=== PATIENT | female | born 1950 | race African-American/Black ===

== ENCOUNTER 2017-05-02 18:44 | Inpatient (IN) | payer MEDICARE, MEDICAID ==
[~2017-05-02] VITALS: Ht 154.9 cm; Wt 48.3 kg
[~2017-05-02 18:44] MED LIST: ACET-2178 PO; ALEN70TA3 PO; AMLO5TAB4 PO; ASCO125T PO; CARI350T PO; FAMO-135 PO; FERR325T22 PO; FOLI-43 PO; HYDR200T PO; MELO-106 PO; TRAM50TA PO
[2017-05-02 19:45] LABS: BASOPHILS % 0.8 % (0.0-2.0); EOSINOPHILS % 1.4 % (0.0-5.0); HEMATOCRIT. 24.7 % (36.0-48.0); HEMOGLOBIN. 7.5 g/dL (12.0-16.0); LYMPHOCYTES % 20.2 % (20.0-50.0); MEAN CORPUSCULAR VOLUME 112.5 fL (81.0-99.0); MEAN PLATELET VOLUME 6.5 fl (7.4-10.4); NEUTROPHILS % 65.6 % (40.0-76.0); PLATELET 357 x1000/uL (130-400); RED BLOOD CELL COUNT 2.19 mill/uL (4.2-5.4); RED CELL DISTRIBUTION WIDTH 17.3 % (11.6-14.6)
[2017-05-02 19:46] LABS: CHLORIDE 119 mEq/L (98-107)
[2017-05-02 19:47] LABS: PROTHROMBIN TIME 10.2 sec (9.4-11.6)
[2017-05-02 19:49] LABS: CARBON DIOXIDE 14 mEq/L (21-32)
[2017-05-02 20:42] LABS: PLATELET ESTIMATE NORMAL
[2017-05-02] MEDS ORDERED: ACETAMINOPHEN WITH CODEINE 300/30MG TABLET PO ONE (21:00)
[2017-05-02] MEDS ORDERED: PANTOPRAZOLE SODIUM 40 MG/VIAL IV ONE (21:30)
[2017-05-03] MEDS ORDERED: HYDR-523 PO (00:38)
[2017-05-03] MEDS ORDERED: ASCO500C6 PO (00:38)
[2017-05-03] MEDS ORDERED: ONDA4TAB5 PO (00:38)
[2017-05-03] MEDS ORDERED: ACETAMINOPHEN 325MG TABLET PO PRN (01:15)
[2017-05-03] MEDS ORDERED: DIPHENHYDRAMINE 50MG/ML VIAL IV PRN (01:15)
[2017-05-03] MEDS ORDERED: LORAZEPAM 0.5MG TABLET PO PRN (01:15)
[2017-05-03] MEDS ORDERED: MAGNESIUM/ALUMINUM HYDROXIDE/SIMETHICONE 30ML UDC PO PRN (01:15)
[2017-05-03] MEDS ORDERED: DOCUSATE SODIUM 100MG CAPSULE PO PRN (01:15)
[2017-05-03 02:12] LABS: TOTAL IRON BINDING CAPACITY 198 ug/dL (250-450)
[2017-05-03] MEDS: SODIUM BICARBONATE 50 MEQ in DEXT 5%/0.45% NACL 1000ML 1,000 ML IV SCH ×2 (02:56→14:28)
[2017-05-03] MEDS: AMLODIPINE 10MG TABLET PO SCH (08:22)
[2017-05-03] MEDS: FAMOTIDINE 20MG TABLET PO SCH (08:23)
[2017-05-03] MEDS: ASCORBIC ACID 500 MG TABLET PO SCH ×2 (08:23→20:09)
[2017-05-03] MEDS: HYDROXYCHLOROQUINE SULFATE 200MG TABLET PO SCH ×2 (08:23→16:28)
[2017-05-03] MEDS: FOLIC ACID 1MG TABLET PO SCH (08:23)
[2017-05-03] MEDS: FERROUS GLUCONATE 324MG TABLET PO SCH ×3 (08:24→16:28)
[2017-05-03 11:32] LABS: BASOPHILS % 0.7 % (0.0-2.0); EOSINOPHILS % 1.7 % (0.0-5.0); HEMATOCRIT. 30.7 % (36.0-48.0); HEMOGLOBIN. 9.8 g/dL (12.0-16.0); LYMPHOCYTES % 14.1 % (20.0-50.0); MEAN CORPUSCULAR HEMOGLOBIN 32.7 pg (28.0-32.0); MEAN CORPUSCULAR VOLUME 102.8 fL (81.0-99.0); MEAN PLATELET VOLUME 7.2 fl (7.4-10.4); MONOCYTES % 12.1 % (2.0-8.0); NEUTROPHILS % 71.4 % (40.0-76.0); PLATELET 315 x1000/uL (130-400); RED BLOOD CELL COUNT 2.98 mill/uL (4.2-5.4); RED CELL DISTRIBUTION WIDTH 23.6 % (11.6-14.6)
[2017-05-03 12:05] LABS: CARBON DIOXIDE 17 mEq/L (21-32); CHLORIDE 119 mEq/L (98-107); PREALBUMIN 31.7 mg/dL (20.0-40.0)
[2017-05-03] MEDS: ACETAMINOPHEN 325MG TABLET PO PRN (20:10)
[2017-05-04] MEDS: SODIUM BICARBONATE 50 MEQ in DEXT 5%/0.45% NACL 1000ML 1,000 ML IV SCH ×2 (02:45→14:00)
[2017-05-04] MEDS: ONDANSETRON HCL 4MG/2ML VIAL IV PRN ×3 (04:44→19:59)
[2017-05-04 06:48] LABS: BASOPHILS % 0.7 % (0.0-2.0); EOSINOPHILS % 1.3 % (0.0-5.0); HEMATOCRIT. 30.3 % (36.0-48.0); HEMOGLOBIN. 9.9 g/dL (12.0-16.0); LYMPHOCYTES % 11.5 % (20.0-50.0); MEAN CORPUSCULAR HEMOGLOBIN 32.2 pg (28.0-32.0); MEAN CORPUSCULAR VOLUME 98.7 fL (81.0-99.0); MEAN PLATELET VOLUME 6.6 fl (7.4-10.4); MONOCYTES % 11.8 % (2.0-8.0); NEUTROPHILS % 74.7 % (40.0-76.0); PLATELET 316 x1000/uL (130-400); RED BLOOD CELL COUNT 3.07 mill/uL (4.2-5.4); RED CELL DISTRIBUTION WIDTH 22.3 % (11.6-14.6)
[2017-05-04] MEDS: FERROUS GLUCONATE 324MG TABLET PO SCH ×3 (06:56→17:20)
[2017-05-04] MEDS ORDERED: ALENDRONATE SODIUM 35MG TABLET PO SCH (07:00)
[2017-05-04 07:33] LABS: CHLORIDE 114 mEq/L (98-107)
[2017-05-04 07:55] LABS: CARBON DIOXIDE 18 mEq/L (21-32)
[2017-05-04 08:08] LABS: VITAMIN B12 SERUM 1390 pg/mL (211-911)
[2017-05-04 08:10] LABS: FOLIC ACID (FOLATE) SERUM > 20.00 ng/mL (>5.38)
[2017-05-04] MEDS: FAMOTIDINE 20MG TABLET PO SCH (08:52)
[2017-05-04] MEDS: HYDROXYCHLOROQUINE SULFATE 200MG TABLET PO SCH ×2 (08:52→17:20)
[2017-05-04] MEDS: AMLODIPINE 10MG TABLET PO SCH (08:52)
[2017-05-04] MEDS: ASCORBIC ACID 500 MG TABLET PO SCH ×2 (08:52→20:00)
[2017-05-04] MEDS: FOLIC ACID 1MG TABLET PO SCH (08:52)
[2017-05-04] MEDS: ACETAMINOPHEN 325MG TABLET PO PRN (20:00)
[2017-05-04] MEDS: SODIUM BICARBONATE 650 MG TABLET PO SCH (21:07)
[2017-05-04 21:14] LABS: BASOPHILS % 0.5 % (0.0-2.0); EOSINOPHILS % 1.7 % (0.0-5.0); HEMOGLOBIN. 9.7 g/dL (12.0-16.0); LYMPHOCYTES % 20.2 % (20.0-50.0); MEAN CORPUSCULAR HEMOGLOBIN 33.3 pg (28.0-32.0); MEAN PLATELET VOLUME 7.1 fl (7.4-10.4); MONOCYTES % 16.4 % (2.0-8.0); NEUTROPHILS % 61.2 % (40.0-76.0); PLATELET 328 x1000/uL (130-400); RED CELL DISTRIBUTION WIDTH 22.7 % (11.6-14.6)
[2017-05-04 21:26] LABS: CREATINE KINASE MB FRACTION 1.2 ng/mL (0.5-3.6); TROPONIN I < 0.02 ng/mL (0.00-0.04)
[2017-05-05] MEDS: FERROUS GLUCONATE 324MG TABLET PO SCH (06:09)
[2017-05-05 08:30] VITALS: BP 122/82
[2017-05-05] MEDS: ONDANSETRON HCL 4MG/2ML VIAL IV PRN (09:05)
[2017-05-05] MEDS: ASCORBIC ACID 500 MG TABLET PO SCH (09:05)
[2017-05-05] MEDS: AMLODIPINE 10MG TABLET PO SCH (09:05)
[2017-05-05] MEDS: HYDROXYCHLOROQUINE SULFATE 200MG TABLET PO SCH (09:05)
[2017-05-05] MEDS: FAMOTIDINE 20MG TABLET PO SCH (09:05)
[2017-05-05] MEDS: FOLIC ACID 1MG TABLET PO SCH (09:05)
[2017-05-05] MEDS: SODIUM BICARBONATE 650 MG TABLET PO SCH (09:07)
[2017-05-06 10:12] LABS: VITAMIN D 1-25 DIHYDROXY 27.5 pg/mL (19.9-79.3)
[2017-05-06 13:12] LABS: ANA IFA Negative (.)
[2017-05-07] MEDS ORDERED: METHOTREXATE SODIUM 2 . 5MG TABLET PO SCH (09:00)
== END 2017-05-05 10:00 | DRG 197 ==
LOC: ER 20:03 → 5WST 20:59 → ENRESERV 21:09
PROVIDERS: ADMIT Internal Medicine Rheumatology; ATTEND Internal Medicine Rheumatology
PROC: 30233N1 Transfusion of Nonautologous Red Blood Cells into Peripheral Vein, Percutaneous Approach (ICD-10-PCS; principal; 2017-05-03)
DX: Q27.30 Arteriovenous malformation, site unspecified (principal); E43 Unspecified severe protein-calorie malnutrition; E87.2 Acidosis; M05.20 Rheumatoid vasculitis with rheumatoid arthritis of unspecified site; N25.89 Other disorders resulting from impaired renal tubular function; E46 Unspecified protein-calorie malnutrition; I11.9 Hypertensive heart disease without heart failure; D53.9 Nutritional anemia, unspecified; M81.0 Age-related osteoporosis without current pathological fracture; I77.6 Arteritis, unspecified; M51.36 Other intervertebral disc degeneration, lumbar region; M19.90 Unspecified osteoarthritis, unspecified site; J44.9 Chronic obstructive pulmonary disease, unspecified; K21.9 Gastro-esophageal reflux disease without esophagitis; Z82.49 Family history of ischemic heart disease and other diseases of the circulatory system; Z83.3 Family history of diabetes mellitus; Z87.891 Personal history of nicotine dependence; Z68.20 Body mass index [BMI] 20.0-20.9, adult; Z79.899 Other long term (current) drug therapy; Z80.9 Family history of malignant neoplasm, unspecified; D63.8 Anemia in other chronic diseases classified elsewhere
CPT/HCPCS: 36415; 80048; 80053; 82270; 82553; 82607; 82652; 82746; 83540; 83550; 83605; 84134; 84484; 84550; 85025; 85044; 85610; 85651; 86256; 86850; 86870; 86880; 86900; 86920; 93005; 96374; 97162; 99285; C9113; J2405; J3490; J7050; P9016

== ENCOUNTER 2017-05-30 10:23 | Inpatient (IN) | payer MEDICARE, MEDICAID ==
[~2017-05-30] VITALS: Ht 154.9 cm; Wt 49.0 kg
[~2017-05-30 10:23] MED LIST changes: +ASCO500C6 PO; +HYDR-523 PO; +ONDA4TAB5 PO
[2017-05-30] MEDS ORDERED: ACETAMINOPHEN 325MG TABLET PO ONE (11:45)
[2017-05-30] MEDS ORDERED: KETOROLAC 15MG/ML VIAL IV ONE (16:00)
[2017-05-30 16:30] LABS: HEMATOCRIT. 33.2 % (36.0-48.0); HEMOGLOBIN. 10.4 g/dL (12.0-16.0); MEAN CORPUSCULAR HEMOGLOBIN 31.3 pg (28.0-32.0); MEAN CORPUSCULAR VOLUME 99.8 fL (81.0-99.0); MEAN PLATELET VOLUME 8.1 fl (7.4-10.4); PLATELET 313 x1000/uL (130-400); RED BLOOD CELL COUNT 3.33 mill/uL (4.2-5.4); RED CELL DISTRIBUTION WIDTH 19.8 % (11.6-14.6)
[2017-05-30 16:42] LABS: CARBON DIOXIDE 20 mEq/L (21-32); CHLORIDE 118 mEq/L (98-107)
[2017-05-30 16:49] LABS: PLATELET ESTIMATE NORMAL
[2017-05-30] MEDS ORDERED: SODIUM CHLORIDE 0.9% 1,000 ML IV ONE (19:00)
[2017-05-30 22:00] VITALS: BP 110/77
[2017-05-30 22:30] VITALS: BP 110/77
[2017-05-31] VITALS: BP 126/85
[2017-05-31] MEDS ORDERED: ACETAMINOPHEN 325MG TABLET PO PRN (00:30)
[2017-05-31] MEDS ORDERED: MAGNESIUM/ALUMINUM HYDROXIDE/SIMETHICONE 30ML UDC PO PRN (00:30)
[2017-05-31] MEDS ORDERED: DOCUSATE SODIUM 100MG CAPSULE PO PRN (00:30)
[2017-05-31] MEDS ORDERED: ALPRAZOLAM 0.25 MG TABLET PO PRN (00:30)
[2017-05-31] MEDS ORDERED: ONDANSETRON HCL 4MG/2ML VIAL IV PRN (00:30)
[2017-05-31] MEDS: DEXT 5%/0.45% NACL 1000ML 1,000 ML IV SCH ×3 (02:23→20:23)
[2017-05-31] MEDS: HYDROMORPHONE HCL/PF 2MG/ML CPJ IV PRN ×2 (02:33→09:19)
[2017-05-31 04:00] VITALS: BP 126/90
[2017-05-31] MEDS: METHYLPREDNISOLONE SOD SUCC 125 MG/2 ML VIAL IV SCH ×3 (05:54→17:55)
[2017-05-31 07:10] LABS: HEMATOCRIT. 28.2 % (36.0-48.0); HEMOGLOBIN. 8.9 g/dL (12.0-16.0); MEAN CORPUSCULAR HEMOGLOBIN 31.4 pg (28.0-32.0); MEAN PLATELET VOLUME 8.8 fl (7.4-10.4); PLATELET 254 x1000/uL (130-400); RED BLOOD CELL COUNT 2.82 mill/uL (4.2-5.4); RED CELL DISTRIBUTION WIDTH 20.1 % (11.6-14.6)
[2017-05-31 07:59] LABS: CHLORIDE 112 mEq/L (98-107)
[2017-05-31 08:00] VITALS: BP 110/77
[2017-05-31 08:17] LABS: CARBON DIOXIDE 16 mEq/L (21-32); T4 FREE 0.95 ng/dL (0.76-1.46)
[2017-05-31] MEDS ORDERED: METHOTREXATE SODIUM 2 . 5MG TABLET PO SCH ×3 (09:00→17:00)
[2017-05-31] MEDS: CALCIUM CARBONATE 1250MG TABLET (500MG ELEMENTAL CALCIUM) PO SCH ×3 (09:19→17:55)
[2017-05-31] MEDS: FOLIC ACID 1MG TABLET PO SCH (09:19)
[2017-05-31] MEDS: AMLODIPINE 5MG TABLET PO SCH (09:20)
[2017-05-31] MEDS: FAMOTIDINE 20MG TABLET PO SCH ×2 (09:20→20:27)
[2017-05-31] MEDS: ZINC SULFATE 220 MG ( 50 ) CAPSULE PO SCH (09:20)
[2017-05-31] MEDS: CHOLECALCIFEROL (D3) 1000 UNIT TABLET PO SCH (09:21)
[2017-05-31] MEDS: HYDROXYCHLOROQUINE SULFATE 200MG TABLET PO SCH ×2 (09:38→17:55)
[2017-05-31] MEDS: MELOXICAM 7.5MG TABLET PO SCH (09:39)
[2017-05-31 12:00] VITALS: BP 126/83
[2017-05-31 12:20] LABS: CREATINE KINASE 128 IU/L (26-192); TOTAL IRON BINDING CAPACITY 181 ug/dL (250-450); TROPONIN I < 0.02 ng/mL (0.00-0.04)
[2017-05-31] MEDS: PAROXETINE HCL 20MG TABLET PO SCH (12:41)
[2017-05-31 16:00] VITALS: BP 123/77
[2017-05-31] MEDS ORDERED: BISMUTH SUBSALICYLATE 262 MG/15 ML-120ML BOTTLE PO NR (16:00)
[2017-05-31 20:00] VITALS: BP 111/75
[2017-05-31 21:14] LABS: PLATELET ESTIMATE NORMAL
[2017-06-01] VITALS: BP 127/80
[2017-06-01] MEDS: METHYLPREDNISOLONE SOD SUCC 125 MG/2 ML VIAL IV SCH ×4 (03:26→16:29)
[2017-06-01 04:00] VITALS: BP 115/55
[2017-06-01] MEDS: DEXT 5%/0.45% NACL 1000ML 1,000 ML IV SCH ×2 (05:54→16:28)
[2017-06-01 06:54] LABS: HEMATOCRIT. 27.5 % (36.0-48.0); HEMOGLOBIN. 8.7 g/dL (12.0-16.0); MEAN CORPUSCULAR HEMOGLOBIN 31.5 pg (28.0-32.0); MEAN CORPUSCULAR VOLUME 99.4 fL (81.0-99.0); PLATELET 250 x1000/uL (130-400); RED BLOOD CELL COUNT 2.76 mill/uL (4.2-5.4); RED CELL DISTRIBUTION WIDTH 19.7 % (11.6-14.6)
[2017-06-01 07:19] LABS: CARBON DIOXIDE 15 mEq/L (21-32); CHLORIDE 113 mEq/L (98-107)
[2017-06-01 08:00] VITALS: BP 132/78
[2017-06-01] MEDS: ZINC SULFATE 220 MG ( 50 ) CAPSULE PO SCH (09:36)
[2017-06-01] MEDS: FOLIC ACID 1MG TABLET PO SCH (09:36)
[2017-06-01] MEDS: CALCIUM CARBONATE 1250MG TABLET (500MG ELEMENTAL CALCIUM) PO SCH ×3 (09:36→16:29)
[2017-06-01] MEDS: CHOLECALCIFEROL (D3) 1000 UNIT TABLET PO SCH (09:36)
[2017-06-01] MEDS: PAROXETINE HCL 20MG TABLET PO SCH (09:36)
[2017-06-01] MEDS: MELOXICAM 7.5MG TABLET PO SCH (09:36)
[2017-06-01] MEDS: AMLODIPINE 5MG TABLET PO SCH (09:36)
[2017-06-01] MEDS: FAMOTIDINE 20MG TABLET PO SCH ×2 (09:36→20:40)
[2017-06-01] MEDS: HYDROXYCHLOROQUINE SULFATE 200MG TABLET PO SCH ×2 (09:49→16:29)
[2017-06-01 12:00] VITALS: BP 142/89
[2017-06-01 14:19] LABS: NUCLEATED RED BLOOD CELLS 1 /100 WBC; PLATELET ESTIMATE NORMAL
[2017-06-01 20:00] VITALS: BP 161/95
[2017-06-02] VITALS: BP 146/90
[2017-06-02] MEDS: METHYLPREDNISOLONE SOD SUCC 125 MG/2 ML VIAL IV SCH ×5 (00:57→23:30)
[2017-06-02] MEDS: DEXT 5%/0.45% NACL 1000ML 1,000 ML IV SCH ×2 (02:57→13:21)
[2017-06-02 04:00] VITALS: BP 153/93
[2017-06-02 07:18] LABS: HEMATOCRIT. 27.2 % (36.0-48.0); MEAN CORPUSCULAR HEMOGLOBIN 32.2 pg (28.0-32.0); MEAN CORPUSCULAR VOLUME 96.9 fL (81.0-99.0); MEAN PLATELET VOLUME 8.8 fl (7.4-10.4); PLATELET 267 x1000/uL (130-400); RED BLOOD CELL COUNT 2.81 mill/uL (4.2-5.4); RED CELL DISTRIBUTION WIDTH 19.1 % (11.6-14.6)
[2017-06-02 08:00] VITALS: BP 155/99
[2017-06-02 08:18] LABS: CARBON DIOXIDE 18 mEq/L (21-32); CHLORIDE 111 mEq/L (98-107)
[2017-06-02] MEDS: ZINC SULFATE 220 MG ( 50 ) CAPSULE PO SCH (09:37)
[2017-06-02] MEDS: AMLODIPINE 5MG TABLET PO SCH (09:37)
[2017-06-02] MEDS: MELOXICAM 7.5MG TABLET PO SCH (09:37)
[2017-06-02] MEDS: PAROXETINE HCL 20MG TABLET PO SCH (09:37)
[2017-06-02] MEDS: FAMOTIDINE 20MG TABLET PO SCH ×2 (09:37→20:51)
[2017-06-02] MEDS: FOLIC ACID 1MG TABLET PO SCH (09:37)
[2017-06-02] MEDS: CALCIUM CARBONATE 1250MG TABLET (500MG ELEMENTAL CALCIUM) PO SCH ×3 (09:37→18:15)
[2017-06-02] MEDS: HYDROXYCHLOROQUINE SULFATE 200MG TABLET PO SCH ×2 (09:37→18:15)
[2017-06-02] MEDS: CHOLECALCIFEROL (D3) 1000 UNIT TABLET PO SCH (09:38)
[2017-06-02 10:48] LABS: PLATELET ESTIMATE NORMAL
[2017-06-02 12:00] VITALS: BP 139/95
[2017-06-02 15:51] VITALS: BP 149/95
[2017-06-02 20:00] VITALS: BP 147/88
[2017-06-02] MEDS ORDERED: HYDROMORPHONE HCL/PF 2MG/ML CPJ IV NR (20:15)
[2017-06-03] VITALS: BP 130/89
[2017-06-03] MEDS ORDERED: HYDROMORPHONE HCL/PF 2MG/ML CPJ IV NR (02:00)
[2017-06-03 04:00] VITALS: BP 150/90
[2017-06-03] MEDS: METHYLPREDNISOLONE SOD SUCC 125 MG/2 ML VIAL IV SCH ×2 (05:43→12:36)
[2017-06-03] MEDS: DEXT 5%/0.45% NACL 1000ML 1,000 ML IV SCH ×2 (05:44→09:02)
[2017-06-03 08:00] VITALS: BP 144/91
[2017-06-03] MEDS: FOLIC ACID 1MG TABLET PO SCH (08:58)
[2017-06-03] MEDS: FAMOTIDINE 20MG TABLET PO SCH ×2 (08:58→21:03)
[2017-06-03] MEDS: PAROXETINE HCL 20MG TABLET PO SCH (08:58)
[2017-06-03] MEDS: AMLODIPINE 5MG TABLET PO SCH (08:58)
[2017-06-03] MEDS: CALCIUM CARBONATE 1250MG TABLET (500MG ELEMENTAL CALCIUM) PO SCH ×3 (08:58→17:19)
[2017-06-03] MEDS: CHOLECALCIFEROL (D3) 1000 UNIT TABLET PO SCH (08:59)
[2017-06-03] MEDS: HYDROXYCHLOROQUINE SULFATE 200MG TABLET PO SCH ×2 (08:59→17:20)
[2017-06-03] MEDS: ZINC SULFATE 220 MG ( 50 ) CAPSULE PO SCH (08:59)
[2017-06-03] MEDS: MELOXICAM 7.5MG TABLET PO SCH (09:01)
[2017-06-03 09:40] LABS: HEMATOCRIT. 28.6 % (36.0-48.0); HEMOGLOBIN. 9.6 g/dL (12.0-16.0); MEAN CORPUSCULAR HEMOGLOBIN 32.5 pg (28.0-32.0); MEAN CORPUSCULAR VOLUME 96.9 fL (81.0-99.0); MEAN PLATELET VOLUME 8.2 fl (7.4-10.4); PLATELET 252 x1000/uL (130-400); RED BLOOD CELL COUNT 2.96 mill/uL (4.2-5.4); RED CELL DISTRIBUTION WIDTH 19.1 % (11.6-14.6)
[2017-06-03 09:56] LABS: CARBON DIOXIDE 25 mEq/L (21-32); CHLORIDE 104 mEq/L (98-107)
[2017-06-03 12:00] VITALS: BP 152/94
[2017-06-03 13:26] LABS: PLATELET ESTIMATE NORMAL
[2017-06-03 16:00] VITALS: BP 156/49
[2017-06-03] MEDS ORDERED: AMLODIPINE 10MG TABLET PO NR (18:00)
[2017-06-03 20:00] VITALS: BP 141/95
[2017-06-04] VITALS: BP 135/95
[2017-06-04 04:00] VITALS: BP_SYST 129; BP_SYST 135; BP_DIAS 90; BP_DIAS 95
[2017-06-04 07:40] VITALS: BP 125/84
[2017-06-04] MEDS: ZINC SULFATE 220 MG ( 50 ) CAPSULE PO SCH (08:19)
[2017-06-04] MEDS: CHOLECALCIFEROL (D3) 1000 UNIT TABLET PO SCH (08:19)
[2017-06-04] MEDS: FOLIC ACID 1MG TABLET PO SCH (08:19)
[2017-06-04] MEDS: MELOXICAM 7.5MG TABLET PO SCH (08:19)
[2017-06-04] MEDS: PAROXETINE HCL 20MG TABLET PO SCH (08:19)
[2017-06-04] MEDS: FAMOTIDINE 20MG TABLET PO SCH (08:19)
[2017-06-04] MEDS: HYDROXYCHLOROQUINE SULFATE 200MG TABLET PO SCH ×2 (08:19→17:08)
[2017-06-04] MEDS: CALCIUM CARBONATE 1250MG TABLET (500MG ELEMENTAL CALCIUM) PO SCH ×3 (08:20→17:08)
[2017-06-04] MEDS: AMLODIPINE 5MG TABLET PO SCH (08:20)
[2017-06-04 09:47] VITALS: BP 128/70
[2017-06-04 12:00] VITALS: BP 123/90
[2017-06-04 13:12] LABS: ALDOLASE 6.5 U/L (3.3-10.3); ANA IFA Negative (.); ANTI-MYELOPEROXIDASE AB < 9.0 U/mL (0.0-9.0); ANTI-PROTEINASE 3 ABS < 3.5 U/mL (0.0-3.5); COMPLEMENT C3 48 mg/dL (82-167); VITAMIN D 1-25 DIHYDROXY 35.1 pg/mL (19.9-79.3)
[2017-06-04 15:07] LABS: ATYPICAL P-ANCA <1:20 titer (Neg:<1:20); CYTOPLASMIC C-ANCA <1:20 titer (Neg:<1:20); PERINUCLEAR P-ANCA <1:20 titer (Neg:<1:20)
[2017-06-04 16:00] VITALS: BP 124/85
[2017-06-05 04:17] LABS: CYC CITRULLINATED PEP IgG/IgA 40 units (0-19)
[2017-06-05] MEDS ORDERED: ALENDRONATE SODIUM 35MG TABLET PO SCH (07:00)
== END 2017-06-04 18:21 | disposition home health service (06) | DRG 346 ==
LOC: ER 10:34 → 8WST 15:54 → ENRESERV 18:19
PROVIDERS: ADMIT Internal Medicine Rheumatology; ATTEND Internal Medicine Rheumatology
DX: M06.9 Rheumatoid arthritis, unspecified (principal); E43 Unspecified severe protein-calorie malnutrition; L89.151 Pressure ulcer of sacral region, stage 1; E87.0 Hyperosmolality and hypernatremia; I11.9 Hypertensive heart disease without heart failure; J44.9 Chronic obstructive pulmonary disease, unspecified; E86.0 Dehydration; D64.9 Anemia, unspecified; F32.9 Major depressive disorder, single episode, unspecified; Z96.641 Presence of right artificial hip joint; M81.0 Age-related osteoporosis without current pathological fracture; M19.90 Unspecified osteoarthritis, unspecified site; K21.9 Gastro-esophageal reflux disease without esophagitis; T38.0X5A Adverse effect of glucocorticoids and synthetic analogues, initial encounter; D72.829 Elevated white blood cell count, unspecified; R26.9 Unspecified abnormalities of gait and mobility; M51.36 Other intervertebral disc degeneration, lumbar region; Z87.891 Personal history of nicotine dependence; Z83.3 Family history of diabetes mellitus; Z82.49 Family history of ischemic heart disease and other diseases of the circulatory system; Y92.89 Other specified places as the place of occurrence of the external cause; Z99.3 Dependence on wheelchair
CPT/HCPCS: 36415; 73560; 73590; 80048; 80053; 82085; 82550; 82553; 82652; 83520; 83540; 83550; 84134; 84439; 84484; 84550; 85025; 85651; 86160; 86200; 86256; 87493; 93005; 96361; 96374; 97110; 97162; 97166; 97530; 99285; J1170; J1885; J2930; J3490; J7030; J8610

== ENCOUNTER 2022-03-07 16:38 | Emergency (ER) | payer MEDICARE, MEDICAID ==
[~2022-03-07] VITALS: Ht 154.9 cm; Wt 53.0 kg
[~2022-03-07 16:38] MED LIST changes: -ACET-2178 PO; -CARI350T PO; +CARI350T28 PO; +FERR324T22 PO; -FERR325T22 PO; -HYDR200T PO; +HYDR200T80 PO; +TOPUD PO
[2022-03-07] MEDS ORDERED: HYDROCODONE/ACETAMINOPHEN 5/325MG TABLET PO ONE (17:45)
[2022-03-07] MEDS ORDERED: KETOROLAC 60MG/2ML VIAL IM ONE (17:45)
[2022-03-07] MEDS ORDERED: MORPHINE SULFATE 4 MG/ML CPJ (NOT FOR IM USE) IV ONE (19:15)
[2022-03-07 19:33] LABS: HEMATOCRIT. 35.5 % (36.0-48.0); HEMOGLOBIN. 11.6 g/dL (12.0-16.0); MEAN CORPUSCULAR HEMOGLOBIN 32.5 pg (28.0-32.0); MEAN PLATELET VOLUME 8.6 fl (7.4-10.4); PLATELET 203 x1000/uL (130-400); RED BLOOD CELL COUNT 3.55 mill/uL (4.2-5.4); RED CELL DISTRIBUTION WIDTH 17.6 % (11.6-14.6)
[2022-03-07 19:39] LABS: CHLORIDE 112 mEq/L (98-107)
[2022-03-07 19:43] LABS: PROTHROMBIN TIME 10.6 sec (9.6-11.0)
[2022-03-07 19:59] LABS: PLATELET ESTIMATE NORMAL
[2022-03-07] MEDS ORDERED: MORPHINE SULFATE 4 MG/ML CPJ (NOT FOR IM USE) IV NR (21:00)
[2022-03-07] MEDS ORDERED: IBUP-2028 MT (21:25)
[2022-03-07] MEDS ORDERED: HYDR-4001 MT (21:25)
[2022-03-08 00:11] VITALS: BP 126/70
[2022-03-09] MEDS ORDERED: AMLO5TAB88 PO (07:28)
[2022-03-09] MEDS ORDERED: CHOL400D7 PO (07:34)
[2022-03-09] MEDS ORDERED: CYPR4SYR PO (07:35)
[2022-03-09] MEDS ORDERED: METH2.5T PO (07:36)
[2022-03-09] MEDS ORDERED: THIA100T88 PO (07:37)
== END 2022-03-08 01:12 ==
LOC: ER 16:38 → CANBEDREQ 21:46 → ER 03-08 01:12
DX: S82.491A Other fracture of shaft of right fibula, initial encounter for closed fracture (principal); S82.291A Other fracture of shaft of right tibia, initial encounter for closed fracture; W18.39XA Other fall on same level, initial encounter; Y93.89 Activity, other specified; Y92.89 Other specified places as the place of occurrence of the external cause; Y99.8 Other external cause status; I10 Essential (primary) hypertension; K21.9 Gastro-esophageal reflux disease without esophagitis; F03.90 Unspecified dementia, unspecified severity, without behavioral disturbance, psychotic disturbance, mood disturbance, and anxiety; J44.9 Chronic obstructive pulmonary disease, unspecified; D64.9 Anemia, unspecified
CPT/HCPCS: 29505; 36415; 73562; 73590; 73610; 80053; 85025; 85610; 86850; 86870; 86900; 86901; 96372; 96374; 99284; J1885; J2270